=== PATIENT | female | born 1975 | race Caucasian/White ===

== ENCOUNTER 2016-10-17 10:47 | Day surgery (SDC) | payer OTHER ==
--- NOTE | 2016-10-16 11:52 | HP ---
DATE OF CLINIC: 10/05/2016 RISA VELA : 1975 PLANNED PROCEDURE: Right Carpal Tunnel Release DATE OF SURGERY: October 17, 2016 SURGEON: Cas Cee M.D. HISTORY OF PRESENT ILLNESS Risa Calloway is a 41 year old female. * Medication list reviewed with patient allergy list reviewed with patient. This is a 41-year-old female who follows up with us today after going for an EMG nerve conduction studies for bilateral carpal tunnel after meeting with Bernardino Honeycutt earlier this year. She is here to review those results and also to talk about plans forward for management of her carpal tunnel syndrome. She complains of long-standing bilateral carpal tunnel type symptoms with pain in the radial 3.5 digits of both hands and some progressive weakness that at this point is really limiting her ability to participate in activities of daily living. She has worn night splints and has modified activities with some moderate relief in the past but no sustained relief. She has not had any injections or medications recently. She has no other extremity complaints at this point. She does have a history of some of falls and she has a history of polycystic ovary disease but does not have any history of diabetes or other nerve type complaints. After discussion and review of treatment options, both operative and non-operative, she has elected to proceed with surgery and presents today preoperatively. PAST MEDICAL AND SURGICAL HISTORY: No other significant past medical or surgical history that is related to her carpal tunnel. CURRENT MEDICATION * Benadryl Allergy 25 MG Tablet 1 once a day PRN, 0 days, 0 refills * Multivitamins Capsule 1 once a day 0 days, 0 refills PAST MEDICAL/SURGICAL HISTORY Reported: Medical: A previous fracture, Reported numbness, Reported tingling, and history of Arthritis. Surgical / Procedural: Caesarean Section 11/26/18 06/07/98. SOCIAL HISTORY Behavioral: Never smoked. Smoking status: Never smoker. Alcohol: Alcohol use a social drinker Occasional. ALLERGIES * Augmentin Reaction: Skin Rashes/Hives * Dairy Products * Morphine Reaction: Skin Rashes/Hives FAMILY HISTORY 2 children living Family medical history Father: Cancer Mother: Auto-Immune Disease REVIEW OF SYSTEMS No recent constitutional symptoms to include fevers and chills. No recent cardiovascular symptoms to include chest pain or palpitations. No recent respiratory symptoms to include shortness of breath or recent infections. PHYSICAL FINDINGS * Vitals taken 10/05/2016 11:35 am BP-Sitting R 141/80 mmHg BP Cuff Size Regular Pulse Rate-Sitting 73 bpm Pulse Rhythm Regular Temp-Oral 98.6 F Height 60 in Weight 226 lbs Body Mass Index 44.1 kg/m2 Body Surface Area 1.97 m2 Pain Level 6 Ears, Nose, Throat: * ENT: normal. Lungs: * Clear to auscultation. Cardiovascular: Heart Rate and Rhythm: * Normal. Abdomen: * Normal. Neurological: Motor: * Dominant Hand = Left Hand. Patient is a well-developed, well-nourished female in no acute distress. They are awake, alert and conversant throughout the encounter. She is obese. CARDIOVASCULAR: Intact peripheral pulses on bilateral upper extremities. No significant edema on inspection of bilateral upper extremities. NEUROLOGIC: Patient had intact coordinated composite motion of the bilateral upper extremities and sensation intact to light touch in all distributions of bilateral upper extremities. PSYCHIATRIC: Patient was oriented to person, place and time and displayed appropriate mood and affect during the encounter. SKIN: Exam of the skin on bilateral upper extremities showed no significant scars, lesions, rashes or masses. FOCUSED MUSCULOSKELETAL EXAM: Examination of the bilateral hands shows no significant wasting of the hands, no scars or significant deformity. She has diminished sensation subjectively in the median nerve distribution bilaterally, bilateral positive Tinel's, Phalen's and flexion compression tests. She has no triggering of the fingers. She does have some stiffness and discomfort with range of motion of her left wrist and a positive CMC grind test of the right thumb. She has full motion of the fingers and a well perfused hand. She is otherwise neurologically intact, beyond the diminution of sensation of the median nerve distribution bilaterally. IMAGING: A review of previous films shows CMC arthritis of the right thumb and also a bit at the base of her second metacarpal. She has some radiocarpal arthrosis with lucency particularly in the left distal radius and there is some scapholunate widening on the left side as well consistent with a slack wrist. ASSESSMENT A 41-year-old female with bilateral carpal tunnel syndrome confirmed by nerve conduction studies in addition to some associated wrist pathology. THERAPY * Patient not eligible for fall risk assessment. PLAN * Carpal tunnel syndrome, bilateral upper limbs Percocet 5-325 MG TABS, 1 every 4 - 6 hours as needed, 14 days, 0 refills * OTHER [place] 5-325 MG TABS, 1 every 4 - 6 hours as needed, 14 days, 0 refills * Decompression of median nerve at carpal tunnel -right CARE TEAM Steven Frey, DO [facility] SURGICAL CONSENT We have discussed surgical options including right CTR and non-operative management. The patient was counseled in detail regarding the diagnosis, treatment options available, prognosis of each treatment option and the potential risks and complications. The risks of surgery include, but are not limited to, anesthetic , neurovascular complications, pulmonary embolism, deep vein thrombosis, wound dehiscence, failure of any or all of the discussed procedures, infection of the joint or surrounding soft tissue, need for revision surgery, chronic pain, limitations in activities of daily living, inability to return to work, and loss of normal range of motion or functional use of the extremity. There is the possibility of failure over time that may require additional operative or non-operative treatment. The patient acknowledged that there are a number of perioperative risks not mentioned here and would still like to proceed. The patient is aware of and understands these risks, and wishes to proceed with the proposed surgical procedure and other procedures as indicated at the time of surgery. We will have the patient see their PCP for a preoperative medical risk assessment. The preoperative instructions were reviewed with the patient and all questions were answered. PB/sg
[~2016-10-17 10:47] MED LIST: CEFAZOLIN SODIUM 2 GRAM PREMIX 100 ML IV ONE; IV START KIT ONE; LACTATED RINGERS 1,000 ML ONE
[2016-10-17] MEDS ORDERED: CEFAZOLIN SODIUM 2 GRAM PREMIX 100 ML IV PRN (11:00)
[2016-10-17 11:05] LABS: HCG,QUALITATIVE URINE NEGATIVE
[2016-10-17] MEDS ORDERED: PROPOFOL 20 ML IV ONE (12:08)
[2016-10-17] MEDS ORDERED: MIDAZOLAM HCL 1 MG/ML 2ML VIAL ONE (12:08)
[2016-10-17] MEDS ORDERED: FENTANYL 100 MCG/2 ML VIAL ONE (12:09)
[2016-10-17] MEDS ORDERED: LIDOCAINE 0.5% (PRES FREE) 50 ML VIAL ONE (12:11)
[2016-10-17] MEDS ORDERED: IV START KIT ONE (12:13)
--- NOTE | 2016-10-17 13:08 | PCMBPN ---
Brief Post Op Note: Date of Procedure: 10/17/16 Start Time: 1245 Preoperative Diagnosis: 1. right carpal tunnel syndrome Postoperative Diagnosis: 1. Same Procedure: right open carpal tunnel release Surgeon: Cas Cee MD Assist: none Anesthesia: Ventura Randle Findings: as above Condition: stable to SDS Complications: none IV Fluids: 400 mLs of LR Urine Output: 0 mLs Estimated Blood Loss: 5 mLs Tourniquet Time: 28 min (Kym block) Specimens: none Implants: none Drains: none Csa Cee MD
[2016-10-17] MEDS ORDERED: ONDANSETRON 4 MG/2ML 2 ML VIAL IV PRN (13:15)
[2016-10-17] MEDS ORDERED: HYDROMORPHONE HCL 1 MG/ML SYRINGE IV PRN (13:15)
[2016-10-17] MEDS ORDERED: LACTATED RINGERS 1,000 ML IV SCH (13:15)
[2016-10-17] MEDS ORDERED: OXYCODONE/ACETAMINOPHEN 5/325 MG TABLET PO PRN (13:15)
[2016-10-17] MEDS ORDERED: DIPHENHYDRAMINE HCL 50 MG/1 ML VIAL IV PRN (13:15)
[2016-10-17] MEDS ORDERED: ACETAMINOPHEN 325 MG TABLET PO PRN (13:15)
[2016-10-17] MEDS ORDERED: HYDROCODONE/ACETAMINOPHEN 5/325MG TABLET ONE ×2 (13:41→14:08)
[2016-10-17] MEDS ORDERED: HYDROCODONE/ACETAMINOPHEN 5/325MG TABLET PO PRN ×2 (13:42→13:50)
--- NOTE | 2016-10-18 14:16 | OP ---
SPARKLE VELA : 1975 [id number] DATE OF SERVICE: October 17, 2016 PREOPERATIVE DIAGNOSIS: Right carpal tunnel syndrome. POSTOPERATIVE DIAGNOSIS: Right carpal tunnel syndrome. PROCEDURE PERFORMED: RIGHT CARPAL TUNNEL RELEASE. SURGEON: Cas Cee M.D. MANAGER SALES TRAINING: None. ANESTHESIA: Zaki Randle C.R.N.A. SPECIMENS: No material was sent to the laboratory. ESTIMATED BLOOD LOSS: 5 mL FLUIDS REPLACED: 400 mL of crystalloid. TOURNIQUET TIME: 28 minutes at 250 mmHg. IMPLANTS: None. DRAINS: None. INDICATIONS: This is a 41-year-old right hand dominant patient with history, physical exam and neurodiagnostic findings of right carpal tunnel syndrome, which has failed to be relieved by nonoperative measures. Risks, benefits and alternatives of an open carpal tunnel release were discussed with the patient and they elected to proceed with surgery. Informed consent was obtained and documented in the chart and the patient was placed on the schedule the first available convenience. DESCRIPTION OF PROCEDURE: The patient was identified in the pre-operative holding area where they were marked with an indelible marker by the operating surgeon. The patient was taken to the operating room where they were placed in the supine position on the operating room table. A [place] block anesthetic was administered by the anesthesia provider. The patient was prepped and draped in the usual sterile fashion for surgery and received perioperative antibiotics prior to the inflation of the tourniquet. A final operative time out was performed and confirmed by all members of the operative team and a longitudinal incision was made on the patient's hand just 6 mm ulnar to the thenar flexion crease. Dissection was carried down identifying transverse fibers of the transverse carpal ligament. This was sharply divided at its proximal extent and the median nerve was visualized. A Hugo elevator was passed into the carpal tunnel to protect the nerve while the remainder of the transverse carpal ligament was sharply divided. This was carried distally until we encountered the perivascular fat of the vascular arches. The tenotomy scissors were passed both superficial and deep to the distal volar forearm fascia proximally and no transligamentous branches of the nerve were identified. Under direct visualization a push cut technique was used to divide the proximal portion of the transverse carpal ligament and the distal volar forearm fascia. At this point we felt that we had achieved an adequate release of the patient's nerves so the wound was copiously irrigated with sterile saline and closed with horizontal mattress sutures of #4-0 Nylon. A sterile dressing of Xeroform, fluffs, web roll and an INGRID bandage was applied. The tourniquet was deflated, the drapes were removed. The patient was transferred to a stretcher and taken postoperatively to the same day surgery unit in stable condition. There were no observed intraoperative complications during this procedure. Job [id number] Cc: [facility]
== END 2016-10-17 14:19 | disposition home or self-care (01) ==
LOC: SDC 10:47
PROVIDERS: ATTEND Orthopaedic Surgery
PROC: 01N50ZZ Release Median Nerve, Open Approach (ICD-10-PCS; principal; 2016-10-17)
DX: G56.03 Carpal tunnel syndrome, bilateral upper limbs (principal); Z88.1 Allergy status to other antibiotic agents; Z88.5 Allergy status to narcotic agent
CPT/HCPCS: 64721; 81025; J3010; J2250; J2001; J7120; A9270 ×2; J0690